=== PATIENT | female | born 1965 | race Caucasian/White ===

== ENCOUNTER → 2017-09-06 11:09 | Outpatient (CLI) | payer OTHER, SELFPAY ==
[2017-09-06 12:23] LABS: Absolute Lymphocyte Count 2.54 X10^3/ul (0.83-4.51); Absolute Neutrophil Count 4.3 X10^3/uL (2.0-7.7); Basophil# 0.03 X10^3/uL; Basophil% 0.4 % (0-1); Eosinophil# 0.23 X10^3/uL; Hematocrit 43.7 % (37-47); Hemoglobin 14.2 g/dl (12.0-15.0); Lymphocyte # 2.54 X10^3/ul (4.0); Lymphocyte % 33.6 % (19-41); Mean Corp Hgb Conc 32.5 g/gl (32-36); Mean Corpuscular Volume 89.2 fL (81-99); Mean Platelet Vol. 10.4 fl (6.2-12.0); Monocyte# 0.46 X10^3/uL; Monocyte% 6.1 % (0-10); Neutrophil % 56.9 % (47-70); Platelet Count 55 K/mm3 (150-450); RBC Distribution Width CV 12.7 % (11.6-14.6); RBC Distribution Width SD 40.7 fl (35.1-43.9); White Blood Count 7.6 K/mm3 (4.4-11.0)
[2017-09-06 12:36] LABS: POSITIVE COUNT NO; POSITIVE DIFFERENTIAL NO; POSITIVE MORPHOLOGY NO
[2017-09-07 15:46] LABS: ANTINUCLEAR ANTIBODIES DIRECT Negative (Negative)
== END ==
PROVIDERS: Visit Provider Dermatology Pediatric Dermatology
DX: D69.3 Immune thrombocytopenic purpura (principal); L81.7 Pigmented purpuric dermatosis; L30.9 Dermatitis, unspecified
CPT/HCPCS: 36415; 85025; 86038